=== PATIENT | female | born 1965 | race Hispanic/Latino ===

== ENCOUNTER 2021-06-09 08:37 | Outpatient (CLI) | payer BC ==
--- NOTE | 2021-06-09 10:03 | XRay Report ---
CHEST 2 VIEWS INDICATION / CLINICAL INFORMATION: R07.89 CHEST PRESSURE. COMPARISON: None available. FINDINGS: SUPPORT DEVICES: None. HEART / MEDIASTINUM: No significant abnormality. LUNGS / PLEURA: No significant pulmonary or pleural abnormality. No pneumothorax. ADDITIONAL FINDINGS: No significant additional findings. IMPRESSION: 1. No acute findings. Signer Name: Edwardo Marquez MD Signed: 06/09/2021 9:58 AM Workstation Name: [id number]
== END 2021-06-09 08:38 | disposition home or self-care (01) ==
LOC: XRAY 08:37
DX: R07.89 Other chest pain (principal)
CPT/HCPCS: 71046